=== PATIENT | male | born 1970 | race Caucasian/White ===

== ENCOUNTER 2017-08-19 15:43 | Emergency (ER) | payer OTHER ==
[~2017-08-19] VITALS: Ht 167.6 cm; Wt 85.6 kg
[2017-08-19 16:19] VITALS: BP 139/85; PULSE 66; RESP 18; TEMP 98.5; O2SAT 97
[2017-08-19 16:30] VITALS: BP 139/85; PULSE 66; RESP 16; TEMP 98.5; O2SAT 97
[2017-08-19] MEDS ORDERED: PROPARACAINE HCL 0.5% OPHT SOLN 15 ML BTL EACH EYE ONE (16:45)
--- NOTE | 2017-08-19 17:54 | PD ---
HPI Chief Complaint: Foreign Body Time Seen by Provider: 17:30 Travel History International Travel<30 days: No Contact w/Intl Traveler<30days: No Traveled to known affect area: No History of Present Illness HPI 47-year-old male here with left eye pain. Prior to arrival the patient was cutting pieces of sheet metal with scissors when a 1 inch piece of sheet metal hit him in the left eye. He reports that his eye was closed with a time and he believes that it hit his eyelid. Regardless, now he has left thigh pain which is aching and worse when his eye is open. He has slight blurred vision. Last tetanus vaccination unknown. No other complaints. PFSH Past Medical History Medical History: Denies Significant Hx Tetanus Vaccination: > 5 Years Influenza Vaccination: No Past Surgical History Surgical History: No Previous Surgery Social History Alcohol Use: Yes (occas. wine) Tobacco Use: Yes (2-3 cigs a day) Substance Use: No Allergies-Medications (Allergen,Severity, Reaction): Coded Allergies: No Known Allergies (Unverified , 08/19/17) Reported Meds & Prescriptions Reported Meds & Active Scripts Active Tylenol-Codeine #3 (Acetaminophen-Codeine) 300-30 mg Tab 1 Tab PO Q4H PRN Erythromycin Opth Oint 5 Mg/Gm Oint 1 Applic LEFT EYE TID 7 Days Review of Systems General / Constitutional: No: Fever Eyes: Positive: Blurred Vision, Redness, Pain Physical Exam Narrative GENERAL: Well-nourished male in no acute distress SKIN: Warm and dry. HEAD: Atraumatic. Normocephalic. EYES: Pupils equal and round reactive to light extraocular muscles are intact left eye conjunctival injection is present. There is a corneal abrasion which appears deep, overlying the left pupil. This is confirmed on Wood's lamp examination. Negative Joel's. ENT: No nasal bleeding or discharge. Mucous membranes pink and moist. NECK: Trachea midline. No JVD. Data Data Last Documented VS Vital Signs Date Time Temp Pulse Resp B/P (MAP) Pulse Ox O2 Delivery O2 Flow Rate FiO2 08/19/17 16:30 98.5 66 16 139/85 (103) 97 08/19/17 16:19 Room Air Orders Orders Proparacaine 0.5% Opth Soln (Alcaine 0.5 (08/19/17 16:45) Tetanus/Diphtheria Tox Adult (Tetanus/Di (08/19/17 18:00) Erythromycin 0.5% Opth Oint (Ilotycin 0. (08/19/17 18:15) Ed Discharge Order (08/19/17 18:06) [facility] Medical Decision Making Medical Screen Exam Complete: Yes Emergency Medical Condition: Yes Medical Record Reviewed: Yes Differential Diagnosis Corneal abrasion, scleral laceration, ruptured globe Narrative Course The patient appears to have a deep abrasion to the left cornea overlying the pupil. Tetanus status updated. Dry Cleaner Apprentice will be consult. Discussed with Dr. Cota who would like to see the patient in the office in the morning, recommends erythromycin ophthalmic ointment. Discussed recommendations with the patient thoroughly. He is stable for discharge. Diagnosis Primary Impression: Corneal abrasion, left Referrals: Beata Cota MD Additional Instructions: Follow-up with Dr. Cota tomorrow morning. Call her office at 8 AM to make the appointment. Use the antibiotic ointment as prescribed. Tylenol with Codeine for pain. Do not drive or drink alcohol when taking this medication. Return for any emergent medical conditions. Med/Other Pt SpecificInfo: Prescription(s) given Scripts Acetaminophen-Codeine (Tylenol-Codeine #3) 300-30 mg Tab 1 TAB PO Q4H Y for PAIN, #20 TAB 0 Refills Prov: Jose Angel Eagle MD 08/19/17 Erythromycin Opth Oint (Erythromycin Opth Oint) 5 Mg/Gm Oint 1 APPLIC LEFT EYE TID for Infection for 7 Days, #1 TUBE 0 Refills Prov: Jose Angel Eagle MD 08/19/17 Disposition: 01 DISCHARGE HOME Condition: Stable Ruiz Desir Aug 19, 2017 17:54
[2017-08-19] MEDS ORDERED: TETANUS/DIPHTHERIA TOXOID ADULT 0.5 ML VIAL IM ONE (18:00)
[2017-08-19] MEDS ORDERED: ERYTOIN10 LEFT EYE (18:05)
[2017-08-19] MEDS ORDERED: TYLETAB34 PO (18:05)
[2017-08-19] MEDS ORDERED: ERYTHROMYCIN 0.5% OPTH OINT 3.5 GM TUBO LEFT EYE ONE (18:15)
[2017-08-23] MEDS ORDERED: NEOM0.1S4 LEFT EYE (08:32)
[2017-08-23] MEDS ORDERED: AMOX875T2 PO (08:32)
[2017-08-23] MEDS ORDERED: OXYC1TAB63 PO (08:32)
== END 2017-08-19 18:31 | disposition home or self-care (01) ==
LOC: PHEFT 15:43
DX: S05.02XA Injury of conjunctiva and corneal abrasion without foreign body, left eye, initial encounter (principal); W22.8XXA Striking against or struck by other objects, initial encounter; Y93.89 Activity, other specified; Z23 Encounter for immunization
CPT/HCPCS: 90471; 90714

== ENCOUNTER → 2017-08-20 | Day surgery (SDC) | payer OTHER ==
[~2017-08-20] VITALS: Ht 167.6 cm; Wt 85.3 kg
[~2017-08-20] MED LIST: AMOX875T2 PO; BALANCED SALT SOLN OPHT IRRIG 15 ML BTL ONE; CHLORHEXIDINE GLUCONATE 2 % 1 PACK (2 CLOTHS) TOPICAL PRN; DEXAMETHASONE SOD PHOS 20 MG/5 ML VIAL ONE; DEXAMETHASONE SOD PHOS 4 MG/ML VIAL IV ONE; DEXAMETHASONE SOD PHOS 4 MG/ML VIAL ONE; DO NOT ADM ANY ANTICOAGULANT DRUGS PRN; ERYTOIN10 LEFT EYE; GENTAMICIN SULFATE 80 MG/2 ML VIAL ONE; GLYCOPYRROLATE 1 MG/5 ML SYRINGE IV PUSH ONE; INSULIN HUMAN REGULAR 1,000 UNITS/10 ML VIAL SQ PRN; LACTATED RINGER'S 1000 ML IV PRN; LIDOCAINE HCL 1% PF 5 ML SYRINGE OTHER ONE; METOPROLOL TARTRATE 25 MG TAB PO PRN; MIDAZOLAM HCL 2 MG/2 ML VIAL IV ONE; NEOM0.1S4 LEFT EYE; NEOSTIGMINE 3 MG/3 ML SYR IV ONE; ONDANSETRON HCL 4 MG/2 ML VIAL IV PUSH ONE; OXYC1TAB63 PO; POVIDONE IODINE 5% (ANTISEPSIS KIT) 4 APPLICATIONS EACH NARE PRN; PROPOFOL 200 MG/20 ML AMP IV ONE; ROCURONIUM INJ 50 MG/5 ML VIAL IV ONE; SODIUM CHLORID 0.9% 500 ML IV PRN; SODIUM CHLORIDE 0.9% 20 ML VIAL ONE; TOBRAMYCIN SULF 0.3% OPHT SOLN 5 ML BTL ONE; TOBRAMYCIN/DEXAMETHASONE OPTH OINT 3.5 GM TUBE ONE; TYLETAB34 PO; ceFAZolin 1,000 MG/NS 100 ML IV ONE; methylPREDNISolone SOD SUCC 40 MG/1 ML VIAL ONE
[2017-08-20] MEDS: ceFAZolin INJ 1,000 MG VIAL ONE (12:49)
[2017-08-20 14:50] VITALS: BP 125/81; PULSE 63; RESP 16; TEMP 98.1; O2SAT 98
--- NOTE | 2017-08-25 11:55 | PD.OP ---
Operative Report Date of Surgery: Aug 20, 2017 Preoperative Diagnosis: (1) Ruptured globe of left eye Postoperative Diagnosis: (1) Ruptured globe of left eye Procedure: ruptured globe repair left eye Anesthesia: General Surgeon: Beata Cota Air Traffic Control Manager(s): none Operation and Findings: Patient was consented for surgery and taken back to the operating room. He was put under general anesthesia and prepped and draped in the usual sterile fashion for ophthalmic surgery. A wire lid speculum was placed in the left eye. It was noted that he had a full thickness vertical laceration of his cornea measuring approx 5-6mm. TobraDex drops were used to irrigate the wound. OcuCoat was injected into the anterior chamber. 10-0 nylon sutures were used to close the laceration. The wound was found to be watertight. Subconjunctival Decadron and Ancef were injected at the end of the case. TobraDex ointment, a patch, and shield were placed on the left eye. The patient was sent to PACU in stable condition. Beata Cota MD Aug 25, 2017 11:55
== END | disposition home or self-care (01) ==
LOC: HOR 10:42
PROVIDERS: ATTEND Ophthalmology
DX: S05.32XA Ocular laceration without prolapse or loss of intraocular tissue, left eye, initial encounter (principal)
CPT/HCPCS: 00140; 65280; J0690; J1100; J2250; J2405; J2710; J3010; J1580; J2920

== ENCOUNTER → 2017-09-14 | Day surgery (SDC) | payer OTHER ==
[~2017-09-14] VITALS: Ht 167.6 cm; Wt 81.4 kg
[~2017-09-14] MED LIST changes: +ACET250T3 PO; +ACETAMINOPHEN 500 MG CPLT ONE; +ACETYLCHOLINE CHL OPHT SOLN 1:100 2 ML VIAL I-OCULAR ONE; +ATROPINE SULFATE 1% OPHT SOLN 2 ML BTL ONE; +ATROPINE SULFATE 1% OPHT SOLN 5 ML BTL LEFT EYE SCH; -BALANCED SALT SOLN OPHT IRRIG 15 ML BTL ONE; +CYCLOPENTOLATE HCL 1% OPHT SOLN 2 ML BTL LEFT EYE SCH; -DEXAMETHASONE SOD PHOS 20 MG/5 ML VIAL ONE; -DEXAMETHASONE SOD PHOS 4 MG/ML VIAL IV ONE; +DEXAMETHASONE SOD PHOS 4 MG/ML VIAL OTHER ONE; +EPINEPHrine HCL (1:1000) 1 MG/ML VIAL ONE; +EPINEPHrine HCL (1:1000) 1 MG/ML VIAL OTHER ONE; -GENTAMICIN SULFATE 80 MG/2 ML VIAL ONE; -GLYCOPYRROLATE 1 MG/5 ML SYRINGE IV PUSH ONE; +MEPERIDINE HCL 25 MG/ML VIAL IV ONE; -MIDAZOLAM HCL 2 MG/2 ML VIAL IV ONE; -NEOSTIGMINE 3 MG/3 ML SYR IV ONE; +ONDANSETRON HCL 4 MG/2 ML VIAL IV ONE; -ONDANSETRON HCL 4 MG/2 ML VIAL IV PUSH ONE; +PHENYLEPHRINE HCL 2.5% OPTH SOLN 2 ML BTL LEFT EYE SCH; -ROCURONIUM INJ 50 MG/5 ML VIAL IV ONE; -SODIUM CHLORIDE 0.9% 20 ML VIAL ONE; +SODIUM CHLORIDE 0.9% INJ 0 ML ONE; +STERILE WATER FOR INJECTION 20 ML VIAL OTHER ONE; -TOBRAMYCIN SULF 0.3% OPHT SOLN 5 ML BTL ONE; +TOBRAMYCIN/DEXAMETHASONE OPTH OINT 3.5 GM TUBE LEFT EYE ONE; +TROPICAMIDE 1% OPHT SOLN 15 ML BTL LEFT EYE SCH; -TYLETAB34 PO; -ceFAZolin 1,000 MG/NS 100 ML IV ONE; +ceFAZolin INJ 1,000 MG VIAL IV ONE; +ceFAZolin INJ 1,000 MG VIAL ONE; -methylPREDNISolone SOD SUCC 40 MG/1 ML VIAL ONE
[2017-09-14 17:50] VITALS: BP 152/85; PULSE 53; RESP 16; TEMP 97.8; O2SAT 99
--- NOTE | 2017-09-17 17:42 | MP ---
cc: TEODORA DARLING DATE OF SURGERY 09/17/17 DATE OF : 1970. POSTOPERATIVE DIAGNOSIS Traumatic cataract, ruptured globe status post repair, cataract capsule rupture, phaco anaphylaxis left eye. PROCEDURE Complex cataract extraction with intraocular lens placement left eye. COMPLICATIONS None BLOOD LOSS Less than [address] Sewell general. INDICATIONS FOR PROCEDURE This is a delightful patient who previously had a ruptured globe with intraocular foreign body perforating his cornea, iris and penetrating his cataract. The patient originally had the ruptured globe repaired and subsequently developed phaco anaphylaxis with cataract material into the anterior chamber. The posterior chamber was not able to be visualized and the integrity of the posterior capsule was unknown. The patient elected for cataract removal and any other indicated procedure. PROCEDURE NOTE After informed consent was obtained, the patient brought to operating, general anesthesia was established. The left eye was prepped and draped in sterile fashion with Betadine in the conjunctival fornix. A temporal conjunctival peritomy was made in scleral tunnel fashion. The anterior cataract material was removed from the anterior chamber with irrigation-aspiration. The anterior cataract capsule was visualized and a large central defect was noted which extended superiorly and inferiorly. The cataract was carefully removed through this defect with phacoemulsification and irrigation-aspiration. The posterior capsule remained intact. An MA 60 AC intraocular lens 19.0 diopter power was inserted into the ciliary sulcus. The lens appeared quite stable. Viscoelastic was removed from the anterior chamber. Indirect was used to visualize the posterior pole. Visualization was limited with the cornea and the cataract capsule, but no retinal detachment was seen. visualization limited peripheral examination but no obvious defects were seen. The scleral tunnel was closed with 0 Vicryl suture. The corneal incisions were closed with 10-0 nylon. Miochol was placed into the anterior chamber and subconjunctival injection of Ancef dexamethasone were given. The eye was patched with Tobramycin ointment. The patient brought to recovery room in stable condition, will continue followup with [facility] for his postoperative care. MD WILLIE Smyth/ /5:04 PM /5:29 PM
== END | disposition home or self-care (01) ==
LOC: ESDC 13:10
PROVIDERS: ATTEND Ophthalmology
DX: H26.1 Traumatic cataract (principal); H59.022 Cataract (lens) fragments in eye following cataract surgery, left eye
CPT/HCPCS: J0171; J0690; J1100; J2175; J2405; J3010; V2632

== ENCOUNTER → 2017-12-22 | Outpatient (CLI) | payer OTHER ==
[~2017-12-22] MED LIST changes: -ACET250T3 PO; -ACETAMINOPHEN 500 MG CPLT ONE; -ACETYLCHOLINE CHL OPHT SOLN 1:100 2 ML VIAL I-OCULAR ONE; +ALPH0.1S LEFT EYE; -AMOX875T2 PO; -ATROPINE SULFATE 1% OPHT SOLN 2 ML BTL ONE; -ATROPINE SULFATE 1% OPHT SOLN 5 ML BTL LEFT EYE SCH; +BALANCED SALT SOLN OPHT IRRIG 15 ML BTL ONE; -CHLORHEXIDINE GLUCONATE 2 % 1 PACK (2 CLOTHS) TOPICAL PRN; -CYCLOPENTOLATE HCL 1% OPHT SOLN 2 ML BTL LEFT EYE SCH; -DEXAMETHASONE SOD PHOS 4 MG/ML VIAL ONE; -DEXAMETHASONE SOD PHOS 4 MG/ML VIAL OTHER ONE; -DO NOT ADM ANY ANTICOAGULANT DRUGS PRN; +DORZ1SOL2 LEFT EYE; -EPINEPHrine HCL (1:1000) 1 MG/ML VIAL ONE; -EPINEPHrine HCL (1:1000) 1 MG/ML VIAL OTHER ONE; -ERYTOIN10 LEFT EYE; +HYPROMELLOSE 0.3 % OPTH GEL 10 GM (0.34 FL OZ) TUBE ONE; -INSULIN HUMAN REGULAR 1,000 UNITS/10 ML VIAL SQ PRN; -LACTATED RINGER'S 1000 ML IV PRN; -LIDOCAINE HCL 1% PF 5 ML SYRINGE OTHER ONE; -MEPERIDINE HCL 25 MG/ML VIAL IV ONE; -METOPROLOL TARTRATE 25 MG TAB PO PRN; -NEOM0.1S4 LEFT EYE; -ONDANSETRON HCL 4 MG/2 ML VIAL IV ONE; -OXYC1TAB63 PO; -PHENYLEPHRINE HCL 2.5% OPTH SOLN 2 ML BTL LEFT EYE SCH; +PHENYLEPHRINE HCL 2.5% OPTH SOLN 2 ML BTL ONE; -POVIDONE IODINE 5% (ANTISEPSIS KIT) 4 APPLICATIONS EACH NARE PRN; +PRED1SUS6 LEFT EYE; +PROPARACAINE HCL 0.5% OPHT SOLN 15 ML BTL ONE; -PROPOFOL 200 MG/20 ML AMP IV ONE; -SODIUM CHLORID 0.9% 500 ML IV PRN; -SODIUM CHLORIDE 0.9% INJ 0 ML ONE; -STERILE WATER FOR INJECTION 20 ML VIAL OTHER ONE; -TOBRAMYCIN/DEXAMETHASONE OPTH OINT 3.5 GM TUBE LEFT EYE ONE; -TOBRAMYCIN/DEXAMETHASONE OPTH OINT 3.5 GM TUBE ONE; -TROPICAMIDE 1% OPHT SOLN 15 ML BTL LEFT EYE SCH; +TROPICAMIDE 1% OPHT SOLN 15 ML BTL ONE; -ceFAZolin INJ 1,000 MG VIAL IV ONE; -ceFAZolin INJ 1,000 MG VIAL ONE
== END ==
LOC: PHSDC 10:51
PROVIDERS: ATTEND Ophthalmology
DX: H26.492 Other secondary cataract, left eye (principal)